=== PATIENT | male | born 1950 | race Caucasian/White ===

== ENCOUNTER 2020-01-30 09:32 | Outpatient (CLI) | payer MEDICARE, BC ==
[2020-01-30] VITALS (7 sets, daily range): BP systolic 108–135; BP diastolic 53–65
[~2020-01-30] VITALS: Ht 175.3 cm; Wt 64.0 kg
[2020-01-30] MEDS ORDERED: regadenoson 0.4mg/5ml syringe IV ONE (10:35)
[2020-01-30] MEDS ORDERED: nitroGLYCERIN 0.4mg SUBLingual tab SL PRN (10:35)
[2020-01-30] MEDS ORDERED: aminophylline 250mg/10ml inj. IV PRN (10:35)
[2020-01-30] MEDS ORDERED: normal saline 500ml IV soln 500 ML IV ONE (10:35)
== END 2020-01-30 23:59 | disposition home or self-care (01) ==
LOC: RAD 09:32
PROVIDERS: ATTEND Internal Medicine Cardiovascular Disease
DX: I10 Essential (primary) hypertension (principal); R06.02 Shortness of breath
CPT/HCPCS: 78452; 93017; A9500; J2785; J7040

== ENCOUNTER 2021-09-02 07:26 | Inpatient (IN) | payer MEDICARE ==
[2021-09-01 15:12] LABS: BASOPHILS % (AUTO) 0.7 % (0-1); EOSINOPHILS % (AUTO) 0.3 % (0-6); LYMPHOCYTES # (AUTO) 0.9 X10'3 (1.1-4.8); MEAN CORPUSCULAR HEMOGLOBIN 29.8 PG (27.0-31.0); MEAN CORPUSCULAR HGB CONC 32.8 g/dL (33.0-36.5); MEAN CORPUSCULAR VOLUME 90.8 FL (78-98); MEAN PLATELET VOLUME 9.2 FL (7.4-10.4); MONOCYTES # (AUTO) 0.5 X10'3 (0-0.9); MONOCYTES % (AUTO) 8.3 % (2-12); NEUTROPHILS # (AUTO) 4.6 X10'3 (1.8-7.7); NEUTROPHILS % (AUTO) 75.7 % (42-75); PRE OP HEMATOCRIT 40.2 % (42.0-52.0); PRE OP HEMOGLOBIN 13.2 g/dL (14.0-17.9); PRE OP PLATELET COUNT 163 X10'3 (140-440); RED BLOOD COUNT 4.43 X10'6 (4.70-6.10); RED CELL DISTRIBUTION WIDTH 14.5 % (11.5-14.5)
[2021-09-01 15:17] LABS: CLARITY,URINE CLEAR (Clear); COLOR,URINE YELLOW (Yellow); GLUCOSE, URINE NEGATIVE (Neg); KETONES,URINE NEGATIVE (Neg); LEUKOCYTE ESTERASE ,URINE NEGATIVE (Neg); NITRITES, URINE NEGATIVE (Neg); OCCULT BLOOD,URINE NEGATIVE (Neg); PROTEIN,URINE NEGATIVE (Neg); UROBILINOGEN,URINE 0.2 E.U/dL (0.2-1.0)
[2021-09-01 15:20] LABS: UA COLLECTION TYPE VOIDED
[2021-09-01 15:23] LABS: PRE OP PROTIME 10.3 SECONDS (9.0-12.0)
[2021-09-01 15:24] LABS: ALBUMIN 4.1 G/DL (3.4-5.0); ALBUMIN/GLOBULIN RATIO 1.5 (1.1-1.5); ALKALINE PHOSPHATASE 68 IU/L (46-116); BLOOD UREA NITROGEN 10 MG/DL (7-18); BUN/CREATININE RATIO 6.2 (5.4-32.0); CALCIUM 8.5 MG/DL (8.5-10.1); CHLORIDE 104 MMOL/L (99-107); CREATININE 1.62 MG/DL (0.60-1.10); PRE OP ALT 21 U/L (30-65); PRE OP ANION GAP 9 (8-16); PRE OP AST 20 U/L (10-37); PRE OP BILIRUB, TOTAL 1.4 MG/DL (0.0-1.0); PRE OP GLUCOSE 109 MG/DL (70-104); PRE OP POTASSIUM 3.7 MMOL/L (3.4-5.1); PRE OP SODIUM 142 MMOL/L (135-145); TOTAL CARBON DIOXIDE 28.9 MMOL/L (24-32); TOTAL PROTEIN 6.9 G/DL (6.4-8.2); eGFR 42 ML/MIN
[~2021-09-02] VITALS: Ht 167.6 cm; Wt 61.2 kg
[2021-09-02] VITALS (21 sets, daily range): BP systolic 98–172; BP diastolic 56–155
[~2021-09-02 07:26] MED LIST: ALBU8HFA PO; CITA20TA28 PO; FLO0.4C PO; MULT-1085 PO; PANT40TA54 PO; TEMA15CA5 PO; albuterol 2.5 MG/3 ML nebule NEB ONE; cefazolin/dext.iso 2gm/50ml IV ONE; famotidine 20mg tablet PO ONE; ringers solution, lacted 1,000 ML IV SCH
[2021-09-02] MEDS ORDERED: fentaNYL /PF 50mcg/ml 5ml ampule ONE (09:33)
[2021-09-02] MEDS ORDERED: midazolam 1 mg/ML 2ml injection ONE ×2 (09:33→10:28)
[2021-09-02] MEDS ORDERED: rocuronium 10mg/ml inj IV ONE (09:34)
[2021-09-02] MEDS ORDERED: propofol inj 20 ML IV ONE (09:34)
[2021-09-02] MEDS ORDERED: BUPIVAcaine 0.5% inj/PF 30 ML ONE (09:49)
[2021-09-02] MEDS ORDERED: sevoflurane 250ml liquid IH ONE (10:17)
[2021-09-02] MEDS ORDERED: BUPIVAcaine 0.5% inj/PF 30 ml vial IJ ONE (12:07)
[2021-09-02] MEDS ORDERED: BUPIVACAINE liposomal/PF 13.3 MG/ML vial IM ONE (12:11)
[2021-09-02] MEDS ORDERED: ondansetron/PF 4mg/2ml inj IV PRN ×2 (12:40→14:45)
[2021-09-02] MEDS ORDERED: proCHLORperazine 10 MG/2 ml inj IV PRN (12:40)
[2021-09-02] MEDS ORDERED: morphine 2 MG/ML inj. syringe IV PRN ×2 (12:40→14:45)
[2021-09-02] MEDS ORDERED: ringers solution, lacted 1,000 ML IV SCH (12:40)
[2021-09-02] MEDS ORDERED: labetalol 20mg/4ml (5mg/ml) syringe IV PRN (12:40)
[2021-09-02] MEDS ORDERED: morphine 4 MG/ML inj SYRINge IV PRN ×2 (12:40→14:45)
[2021-09-02] MEDS ORDERED: meperidine/PF 25mg/ml syringe IV PRN ×2 (12:40)
[2021-09-02] MEDS ORDERED: fentaNYL/PF 50MCG/1 ML 2ML syringe ONE (13:30)
[2021-09-02] MEDS ORDERED: ondansetron/PF 4mg/2ml inj ONE (13:34)
[2021-09-02] MEDS ORDERED: dexamethasone sod phosphate 4mg/ml inj. ONE (13:34)
[2021-09-02] MEDS ORDERED: neostigmine methylsulfate 1 MG/ML 10ml vial ONE (13:41)
[2021-09-02] MEDS ORDERED: glycopyrrolate 0.2mg/ml inj ONE (13:41)
[2021-09-02] MEDS ORDERED: sugammadex 200mg/2ml injection IV ONE (13:56)
--- NOTE | 2021-09-02 14:04 | NUR ---
Received from OR via BED, ART LINE TO LEFT WRIST, 16G PIV TO RIGHT F/A, CT TO RIGHT CHEST, DSG TO RIGHT SIDE AND BACK CDI. CT TO SXN. PT DENIES PAIN AT THIS TIME, accompanied by Anesthesiologist DR PAYNE AND VICE PRESIDENT OF SOFTWARE ENGINEERING MARNIE and report given by Anesthesiolgist. Addendum: 09/02/21 at 1433 by Leslee Guzman RN Amended: Links added.
[2021-09-02] MEDS ORDERED: metoclopramide 5 mg/ml inj IV PRN (14:45)
[2021-09-02] MEDS ORDERED: albuterol 2.5 MG/3 ML nebule NEB PRN (14:45)
[2021-09-02 14:47] LABS: ABG HCO3 24.1 mmol/L (22.0-26.0); ABG OXYGEN SATURATION 96.9 % (94-97); ABG PCO2 (T) 46.5 mmHg (35.0-48.0); ABG PO2 (T) 101.8 mmHg (75.0-100.0); FCOHb 0.3 % (0.0-3.9); FLOW 10 L/min; FMetHb 0.1 % (0.0-1.5); FO2Hb 96.5 % (94-97); TOTAL HEMOGLOBIN 12.8 G/dl (14.0-18.0)
[2021-09-02] MEDS: meperidine/PF 25mg/ml syringe IV PRN ×2 (14:58→15:39)
--- NOTE | 2021-09-02 15:54 | NUR ---
PT TRANSPORTED TO PCU VIA BED. ART LINE TO LEFT WRIST REMOVED WITH PRESSURE PLACED AND BLEEDING CONTROLLED PRIOR TO TRANSFER. DRESSING TO RIGHT CHEST TUBE AND RIGHT SIDE/FLANK CDI. PT A/O X4, VSS, 16G IV TO RIGHT F/A. REPORT GIVEN TO JUDY CERVANTES ALL QUESTIONS ASKED AND ANSWERED. BED IN LOW LOCKED POSITON WITH SIDE RAILS UP X2 AND CALL LIGHT IN PLACE Addendum: 09/02/21 at 1607 by Leslee Guzman RN Amended: Links added.
[2021-09-02] MEDS: ceFAZolin inj. 1,000 MG in dextrose 5%-water 50ml 50 ML IV SCH ×2 (16:39→23:33)
[2021-09-02] MEDS: HYDROcodone/acetaminophen 10/325mg tab PO PRN (16:40)
[2021-09-02] MEDS: potassium Cl 20mEq in D5-NS 1,000 ML IV SCH (17:16)
[2021-09-02] MEDS: gabapentin 300mg capsule PO SCH (19:54)
[2021-09-03 02:00] VITALS: BP 113/61
[2021-09-03] MEDS: potassium Cl 20mEq in D5-NS 1,000 ML IV SCH ×2 (03:17→21:58)
[2021-09-03 06:00] VITALS: BP 103/57
--- NOTE | 2021-09-03 06:29 | NUR ---
Problems reprioritized. Patient report given, questions answered & plan of care reviewed with Elsy CERVANTES.
--- NOTE | 2021-09-03 06:30 | NUR ---
Patient in room PCU 3022. I have received report from Geraldo CERVANTES and had the opportunity to ask questions and assume patient care.
[2021-09-03 07:21] LABS: BASOPHILS % (AUTO) 0.4 % (0-1); EOSINOPHILS % (AUTO) 0 % (0-6); HEMATOCRIT 34.1 % (42.0-52.0); HEMOGLOBIN 11.4 g/dl (14.0-17.9); LYMPHOCYTES # (AUTO) 0.7 X10'3 (1.1-4.8); LYMPHOCYTES % (AUTO) 7.7 % (21-51); MEAN CORPUSCULAR HEMOGLOBIN 30.5 PG (27.0-31.0); MEAN CORPUSCULAR HGB CONC 33.5 g/dL (33.0-36.5); MEAN CORPUSCULAR VOLUME 91.1 FL (78-98); MEAN PLATELET VOLUME 9.1 FL (7.4-10.4); MONOCYTES # (AUTO) 0.9 X10'3 (0-0.9); MONOCYTES % (AUTO) 9.6 % (2-12); NEUTROPHILS # (AUTO) 7.6 X10'3 (1.8-7.7); NEUTROPHILS % (AUTO) 82.3 % (42-75); PLATELET COUNT 135 X10'3 (140-440); RED BLOOD COUNT 3.74 X10'6 (4.70-6.10); RED CELL DISTRIBUTION WIDTH 14.6 % (11.5-14.5); WHITE BLOOD COUNT 9.3 X10'3 (4.5-11.0)
[2021-09-03 07:39] LABS: ALANINE AMINOTRANSFERASE 13 U/L (12-78); ALBUMIN/GLOBULIN RATIO 1.2 (1.1-1.5); ALKALINE PHOSPHATASE 49 IU/L (46-116); ANION GAP 7 (8-16); ASPARTATE AMINO TRANSFERASE 18 U/L (10-37); BILIRUBIN,TOTAL 1.3 MG/DL (0.1-1.0); BLOOD UREA NITROGEN 10 MG/DL (7-18); BUN/CREATININE RATIO 7.1 (5.4-32.0); CALCIUM 8.1 MG/DL (8.5-10.1); CHLORIDE 105 MMOL/L (99-107); GLUCOSE 124 MG/DL (70-104); PHOSPHORUS 3.2 MG/DL (2.3-4.5); POTASSIUM 4.5 MMOL/L (3.5-5.1); SODIUM 141 MMOL/L (135-145); TOTAL PROTEIN 5.6 G/DL (6.4-8.2); eGFR 50 ML/MIN
[2021-09-03] MEDS: HYDROcodone/acetaminophen 10/325mg tab PO PRN ×2 (09:59→20:45)
[2021-09-03] MEDS: gabapentin 300mg capsule PO SCH ×2 (09:59→20:45)
[2021-09-03 11:00] VITALS: BP 115/58
[2021-09-03 15:00] VITALS: BP 122/54
[2021-09-03] MEDS ORDERED: non-formulary drug (albuterol inhaler (Pro-Air Inhaler) 2 PUFFS) PO PRN (17:30)
[2021-09-03] MEDS: citalopram 20mg tablet PO SCH (20:44)
[2021-09-03] MEDS: pantoprazole 40mg Tablet.DR PO SCH (20:45)
--- NOTE | 2021-09-03 21:00 | NUR ---
pt BS 161. No coverage per protocol Addendum: 09/04/21 at 0236 by Pura Childress RN Amended: Links added. Addendum: 09/04/21 at 0438 by Pura Childress RN collision estimator error Addendum: 09/04/21 at 0439 by Pura Childress RN collision estimator error
[2021-09-03] MEDS: temazepam 15mg capsule PO SCH (21:45)
[2021-09-04 06:00] VITALS: BP 138/72
--- NOTE | 2021-09-04 06:30 | NUR ---
Patient in room PCU 3022. I have received report from Pura CERVANTES and had the opportunity to ask questions and assume patient care.
[2021-09-04 07:00] LABS: ALANINE AMINOTRANSFERASE 12 U/L (12-78); ALBUMIN/GLOBULIN RATIO 1.1 (1.1-1.5); ALKALINE PHOSPHATASE 51 IU/L (46-116); ANION GAP 8 (8-16); ASPARTATE AMINO TRANSFERASE 17 U/L (10-37); BILIRUBIN,TOTAL 1.5 MG/DL (0.1-1.0); BLOOD UREA NITROGEN 9 MG/DL (7-18); BUN/CREATININE RATIO 6.8 (5.4-32.0); CALCIUM 8.5 MG/DL (8.5-10.1); CHLORIDE 104 MMOL/L (99-107); CREATININE 1.32 MG/DL (0.60-1.10); GLUCOSE 90 MG/DL (70-104); MAGNESIUM 1.8 MG/DL (1.5-2.4); PHOSPHORUS 2.4 MG/DL (2.3-4.5); POTASSIUM 4.6 MMOL/L (3.5-5.1); SODIUM 140 MMOL/L (135-145); TOTAL CARBON DIOXIDE 28.5 MMOL/L (24-32); TOTAL PROTEIN 5.8 G/DL (6.4-8.2); eGFR 53 ML/MIN
[2021-09-04 07:01] LABS: BASOPHILS % (AUTO) 0.4 % (0-1); EOSINOPHILS % (AUTO) 0.4 % (0-6); HEMOGLOBIN 11.5 g/dl (14.0-17.9); LYMPHOCYTES # (AUTO) 0.8 X10'3 (1.1-4.8); LYMPHOCYTES % (AUTO) 9.9 % (21-51); MEAN CORPUSCULAR HEMOGLOBIN 30.7 PG (27.0-31.0); MEAN CORPUSCULAR HGB CONC 33.9 g/dL (33.0-36.5); MEAN CORPUSCULAR VOLUME 90.6 FL (78-98); MONOCYTES # (AUTO) 0.8 X10'3 (0-0.9); MONOCYTES % (AUTO) 9.7 % (2-12); NEUTROPHILS # (AUTO) 6.5 X10'3 (1.8-7.7); NEUTROPHILS % (AUTO) 79.6 % (42-75); PLATELET COUNT 128 X10'3 (140-440); RED BLOOD COUNT 3.75 X10'6 (4.70-6.10); RED CELL DISTRIBUTION WIDTH 14.5 % (11.5-14.5); WHITE BLOOD COUNT 8.2 X10'3 (4.5-11.0)
[2021-09-04] MEDS: tamsulosin 0.4mg capsule PO SCH (08:45)
[2021-09-04] MEDS: pantoprazole 40mg Tablet.DR PO SCH ×2 (08:46→20:23)
[2021-09-04] MEDS: gabapentin 300mg capsule PO SCH (08:46)
[2021-09-04] MEDS: citalopram 20mg tablet PO SCH (08:46)
[2021-09-04] MEDS: multivitamins, therapeutics tablet PO SCH (08:46)
[2021-09-04 11:00] VITALS: BP 150/64
[2021-09-04] MEDS: HYDROcodone/acetaminophen 10/325mg tab PO PRN ×2 (12:59→20:24)
[2021-09-04 15:00] VITALS: BP 121/71
--- NOTE | 2021-09-04 16:00 | NUR ---
Pt stable without assessment changes. MD at bedside this PM and chest tube discontinued, pt tolerated procedure well. Ayala discontinued also. Continue to monitor, notify MD of assessment changes.
[2021-09-04 18:00] VITALS: BP 121/74
--- NOTE | 2021-09-04 21:00 | NUR ---
Pt: [facility] Room 3022. Two days post right lung resection has been receiving [place] post-op and is constipated. Pt does not have bowel regimen ordered. Requesting bowel regimen. Thank you, Pura CERVANTES ext: [phone]
[2021-09-04] MEDS ORDERED: bisacodyl 5mg tablet.DR PO PRN (21:20)
[2021-09-04] MEDS: temazepam 15mg capsule PO SCH (21:52)
[2021-09-04 22:00] VITALS: BP 125/68
--- NOTE | 2021-09-04 22:05 | NUR ---
Ambulated pt to restroom on RA. Pt desaturated to 88% complains of SOB, denies dizziness/lightheadedness. Pt placed back on 2L now saturating 96%. Addendum: 09/04/21 at 2249 by Pura Childress RN Amended: Links added.
[2021-09-05 02:00] VITALS: BP 108/66
[2021-09-05 06:00] VITALS: BP 94/57
[2021-09-05 06:53] LABS: BASOPHILS % (AUTO) 0.6 % (0-1); EOSINOPHILS # (AUTO) 0.1 X10'3 (0-0.9); EOSINOPHILS % (AUTO) 1.8 % (0-6); HEMATOCRIT 35.8 % (42.0-52.0); HEMOGLOBIN 11.9 g/dl (14.0-17.9); LYMPHOCYTES # (AUTO) 0.9 X10'3 (1.1-4.8); LYMPHOCYTES % (AUTO) 13.3 % (21-51); MEAN CORPUSCULAR HEMOGLOBIN 30.4 PG (27.0-31.0); MEAN CORPUSCULAR HGB CONC 33.3 g/dL (33.0-36.5); MEAN CORPUSCULAR VOLUME 91.5 FL (78-98); MEAN PLATELET VOLUME 9.7 FL (7.4-10.4); MONOCYTES # (AUTO) 0.6 X10'3 (0-0.9); MONOCYTES % (AUTO) 9.9 % (2-12); NEUTROPHILS # (AUTO) 4.8 X10'3 (1.8-7.7); NEUTROPHILS % (AUTO) 74.4 % (42-75); PLATELET COUNT 126 X10'3 (140-440); RED BLOOD COUNT 3.92 X10'6 (4.70-6.10); RED CELL DISTRIBUTION WIDTH 14.2 % (11.5-14.5); WHITE BLOOD COUNT 6.5 X10'3 (4.5-11.0)
--- NOTE | 2021-09-05 07:01 | NUR ---
Patient in room PCU 3022. I have received report from BILLY SAEED, and had the opportunity to ask questions and assume patient care.
[2021-09-05 07:34] LABS: ALANINE AMINOTRANSFERASE 13 U/L (12-78); ALBUMIN 3.2 G/DL (3.4-5.0); ALBUMIN/GLOBULIN RATIO 1.1 (1.1-1.5); ALKALINE PHOSPHATASE 55 IU/L (46-116); ANION GAP 7 (8-16); ASPARTATE AMINO TRANSFERASE 21 U/L (10-37); BILIRUBIN,TOTAL 1.6 MG/DL (0.1-1.0); BLOOD UREA NITROGEN 14 MG/DL (7-18); BUN/CREATININE RATIO 10.1 (5.4-32.0); CHLORIDE 104 MMOL/L (99-107); CREATININE 1.39 MG/DL (0.60-1.10); GLUCOSE 84 MG/DL (70-104); MAGNESIUM 1.8 MG/DL (1.5-2.4); PHOSPHORUS 3.3 MG/DL (2.3-4.5); POTASSIUM 4.9 MMOL/L (3.5-5.1); SODIUM 142 MMOL/L (135-145); TOTAL CARBON DIOXIDE 30.9 MMOL/L (24-32); eGFR 50 ML/MIN
[2021-09-05] MEDS: tamsulosin 0.4mg capsule PO SCH (08:07)
[2021-09-05] MEDS: citalopram 20mg tablet PO SCH (08:08)
[2021-09-05] MEDS: pantoprazole 40mg Tablet.DR PO SCH ×2 (08:08→20:09)
[2021-09-05] MEDS: multivitamins, therapeutics tablet PO SCH (08:08)
[2021-09-05] MEDS: HYDROcodone/acetaminophen 10/325mg tab PO PRN ×2 (08:09→20:11)
[2021-09-05] MEDS ORDERED: iohexol 300mg/ml 100ml inj. ONE (11:01)
[2021-09-05 15:00] VITALS: BP 131/76
[2021-09-05] MEDS: potassium Cl 20mEq in D5-NS 1,000 ML IV SCH (15:45)
[2021-09-05 18:00] VITALS: BP 133/76
--- NOTE | 2021-09-05 18:18 | NUR ---
Problems reprioritized. Patient report given, questions answered & plan of care reviewed with BILLY MILELR.
--- NOTE | 2021-09-05 18:30 | NUR ---
Patient in room PCU 3022. I have received report from BELA CERVANTES and had the opportunity to ask questions and assume patient care.
[2021-09-05] MEDS: gabapentin 400mg capsule PO SCH (20:09)
[2021-09-05] MEDS: temazepam 15mg capsule PO SCH (20:09)
[2021-09-05 22:00] VITALS: BP 111/68
[2021-09-05] MEDS ORDERED: sennosides/docusate sodium tablet PO SCH (22:00)
[2021-09-06 05:13] LABS: BASOPHILS % (AUTO) 0.8 % (0-1); EOSINOPHILS # (AUTO) 0.1 X10'3 (0-0.9); EOSINOPHILS % (AUTO) 2.1 % (0-6); HEMATOCRIT 34.9 % (42.0-52.0); HEMOGLOBIN 11.7 g/dl (14.0-17.9); LYMPHOCYTES # (AUTO) 0.7 X10'3 (1.1-4.8); LYMPHOCYTES % (AUTO) 12.6 % (21-51); MEAN CORPUSCULAR HEMOGLOBIN 30.5 PG (27.0-31.0); MEAN CORPUSCULAR HGB CONC 33.6 g/dL (33.0-36.5); MEAN CORPUSCULAR VOLUME 90.8 FL (78-98); MEAN PLATELET VOLUME 9.7 FL (7.4-10.4); MONOCYTES # (AUTO) 0.6 X10'3 (0-0.9); MONOCYTES % (AUTO) 11.5 % (2-12); PLATELET COUNT 138 X10'3 (140-440); RED BLOOD COUNT 3.84 X10'6 (4.70-6.10); RED CELL DISTRIBUTION WIDTH 14.1 % (11.5-14.5); WHITE BLOOD COUNT 5.4 X10'3 (4.5-11.0)
[2021-09-06 05:27] LABS: ALANINE AMINOTRANSFERASE 14 U/L (12-78); ALBUMIN/GLOBULIN RATIO 1.1 (1.1-1.5); ALKALINE PHOSPHATASE 53 IU/L (46-116); ANION GAP 4 (8-16); ASPARTATE AMINO TRANSFERASE 21 U/L (10-37); BILIRUBIN,TOTAL 1.3 MG/DL (0.1-1.0); BLOOD UREA NITROGEN 13 MG/DL (7-18); BUN/CREATININE RATIO 9.6 (5.4-32.0); CALCIUM 8.5 MG/DL (8.5-10.1); CHLORIDE 103 MMOL/L (99-107); CREATININE 1.36 MG/DL (0.60-1.10); GLUCOSE 93 MG/DL (70-104); MAGNESIUM 1.8 MG/DL (1.5-2.4); PHOSPHORUS 3.7 MG/DL (2.3-4.5); SODIUM 138 MMOL/L (135-145); TOTAL CARBON DIOXIDE 31.3 MMOL/L (24-32); TOTAL PROTEIN 5.8 G/DL (6.4-8.2); eGFR 52 ML/MIN
[2021-09-06 06:00] VITALS: BP 121/76
--- NOTE | 2021-09-06 08:01 | NUR ---
Patient in room PCU 3022. I have received report from BILLY MILLER, and had the opportunity to ask questions and assume patient care.
[2021-09-06] MEDS: tamsulosin 0.4mg capsule PO SCH (08:35)
[2021-09-06] MEDS: gabapentin 400mg capsule PO SCH (08:52)
[2021-09-06] MEDS: pantoprazole 40mg Tablet.DR PO SCH (08:52)
[2021-09-06] MEDS: multivitamins, therapeutics tablet PO SCH (08:52)
[2021-09-06] MEDS: citalopram 20mg tablet PO SCH (08:52)
[2021-09-06 11:00] VITALS: BP 134/70
--- NOTE | 2021-09-06 11:49 | NUR ---
PT STABLE FOR DISCHARGE PER MD. DISCHARGE AND FOLLOW UP INSTRUCTIONS REVIEWED WITH PT BY LISS LEARY AND BILLY CRAMER. PIV REMOVED WITH TIP INTACT. TELE BOX REMOVED. PT DISCHARGED TO HOME AND VERBALIZED UNDERSTANDING THAT HE IS TO MAKE FOLLOW UP APPOINTMENTS. PT TRANSFERRED TO [facility] BY HOSPITAL STAFF. PT TRANSPORTED HOME IN PRIVATE VEHICLE.
== END 2021-09-06 11:40 | disposition home or self-care (01) | DRG 165 ==
LOC: PAS IN 07:26 → PCU 3S 16:03
PROVIDERS: ADMIT Surgery; ATTEND Surgery
PROC: 0BBD4ZZ Excision of Right Middle Lung Lobe, Percutaneous Endoscopic Approach (ICD-10-PCS; 2021-09-02)
PROC: 8E0W4CZ Robotic Assisted Procedure of Trunk Region, Percutaneous Endoscopic Approach (ICD-10-PCS; 2021-09-02)
PROC: 0BBF4ZZ Excision of Right Lower Lung Lobe, Percutaneous Endoscopic Approach (ICD-10-PCS; principal; 2021-09-02 10:17)
PROC: BW241ZZ Computerized Tomography (CT Scan) of Chest and Abdomen using Low Osmolar Contrast (ICD-10-PCS; 2021-09-05)
DX: C34.31 Malignant neoplasm of lower lobe, right bronchus or lung (principal); Z20.822 Contact with and (suspected) exposure to COVID-19; F17.210 Nicotine dependence, cigarettes, uncomplicated; J44.9 Chronic obstructive pulmonary disease, unspecified; Z79.899 Other long term (current) drug therapy
CPT/HCPCS: 36415; 36600; 71045; 71046; 71260; 80053; 81003; 82803; 82948; 83735; 84100; 85018; 85025; 85610; 85730; 86885; 86900; 86901; 86920; 87081; 87635; 88307; 88331; 88341; 88342; 93005; 94010; 94640; 94760; 97116; 97161; 97530; A4618; A6258; A6449; A7000; A7048; C1758; C9250; C9290; G0378; J0690; J1100; J2175; J2250; J2405; J2704; J2710; J3010; J3480; J3490; J7040; J7060; J7120; Q9967; S0020